=== PATIENT | female | born 1970 | race African-American/Black ===

== ENCOUNTER 2017-12-04 23:21 | Inpatient (IN) | payer BC ==
--- NOTE | 2017-12-04 23:55 | ED Physician Chart ---
ED Chief Complaint/HPI - Patient Information Date Seen:: 12/04/17 Time Seen:: 23:40 Chief Complaint:: chest pain History of Present Illness:: Patient had onset 2 days ago of left superior burning chest pain 9-10 on a scale 1-10. Right flank pain radiating down her right foot started today. Her fingertips were blue tonight. Paresthesias of her feet started about 1800. Historian:: Patient Review:: Nurse's Note Reviewed, Transfer documents Reviewed ED Review of Systems - Review of Systems General/Constitutional: No fever, No chills Skin: No skin lesions Head: No headache Eyes: No loss of vision ENT: No earache Neck: No neck pain, No swelling Cardio Vascular: Chest pain Pulmonary: No SOB GI: No nausea, No vomiting, No diarrhea G/U: No dysuria Musculoskeletal: Other (right flank pain) Endocrine: No polyuria, No polydipsia Psychiatric: No prior psych history Hematopoietic: No bruising Allergic/Immuno: No urticaria Neurological: No syncope ED Past Medical History - Past Medical History Past Medical History: Other (psoriatic arthritis; fibromyalgia; childhood asthma ) Family History: Heart disease Social History: Smoker, Other (smokes one half pack a day) Family Medical History - Family Member Grandmother Living Status: Hx Family Coronary Artery Disease: Yes ED Physical Exam - Physical Examination General/Constitutional: Well-developed, well-nourished, Alert, No distress Head: Atraumatic Eyes: Lids, conjuctiva normal, PERRL Skin: Nl inspection, No rash ENMT: External ears, nose nl, TM canals nl, Nasal exam nl, Lips, teeth, gums nl , Oropharynx nl, Tonsils nl Neck: No nuchal rigidity Respiratory: Nl effort/Exclusion, Clear to Auscultation Cardio Vascular: RRR, No murmur, gallop, rubs GI: No organomegaly, No hernia, Normal BS's, Nondistended, No mass/bruits Other GI comments:: Right-sided abdominal tenderness : No CVA tenderness Extremities: Normal digits & nails ED Labs/Radiology/EKG Results - Lab Results Results: Laboratory Results - last 24 hr 12/04/17 12/04/17 12/04/17 23:50 23:50 23:50 WBC 6.9 RBC 3.90 Hgb 11.4 L Hct 35.2 L MCV 90.3 MCH 29.2 MCHC Differential 32.3 RDW 15.5 Plt Count 457 H MPV 7.2 Neutrophils % 64.2 Lymphocytes % 32.0 Monocytes % 2.2 Eosinophils % 0.7 Basophils % 0.9 Sodium 135 L Potassium 4.4 Chloride 105 Carbon Dioxide 24.2 Anion Gap 10.2 BUN 29 H Creatinine 1.6 H Est GFR ( Amer) 44.4 Est GFR (Non-Af Amer) 36.7 BUN/Creatinine Ratio 18.1 Glucose 106 H Calcium 9.1 Magnesium 2.3 Total Bilirubin 0.4 Direct Bilirubin 0.03 AST 8 L ALT 6 L Alkaline Phosphatase 79 Troponin I < 0.01 L Total Protein 7.4 Albumin 4.1 Globulin 3.3 Albumin/Globulin Ratio 1.2 - EKG Interpretations Rate & Rhythm: normal sinus rhythm with a rate of 91; concave elevation in leads V2 and V3 [place]: normal axis ED Assessment - Assessment General Assessment: Spoke to Dr. Iraheta who felt that if the sedimentation rate is high patient could have pericarditis. With about 15 minutes more to run the sedimentation rate is already 70. Patient to be admitted to telemetry. Patient felt better after 2 mg of Dilaudid intramuscularly. ED Septic Shock - . Is Septic Shock (SBP<90, OR Lactate>4 mmol\L) present?: No ED Reassessment (Disposition) - Reassessment Reassessment Condition:: Improved - Diagnosis Diagnosis:: Chest pain; possible pericarditis; renal insufficiency - Patient Disposition Admitted to:: Telemetry Condition at Disposition:: Stable, Improved
[2017-12-05 00:09] LABS: % BASOPHILS 0.9 % (0.0-2.0); % EOSINOPHILS 0.7 % (0.0-5.0); % MONOCYTES 2.2 % (2.0-10.0); % NEUTROPHILS 64.2 % (40.0-80.0); BASOPHILE ABSOLUTE 0.1 Th/cumm (0-0.2); HEMATOCRIT 35.2 % (41.0-60); HEMOGLOBIN 11.4 gm/dL (12-16); LYMPHOCYTE ABSOLUTE 2.2 Th/cmm (1.5-3.0); MEAN CELL VOLUME 90.3 fl (81-100); MEAN CORPUSCULAR HEMOGLOBIN 29.2 pg (27.0-31.0); MEAN CORPUSCULAR HGB CONC 32.3 pg (28.0-36.0); MEAN PLATELET VOLUME 7.2 fl; MONOCYTE ABSOLUTE 0.2 Th/cmm (0.3-1.0); NEUTROPHILE ABSOLUTE 4.4 Th/cmm (1.8-8.0); PLATELET COUNT 457 Th/cmm (150-400); RED CELL DISTRIBUTION WIDTH 15.5 % (11.5-20.0); WHITE BLOOD COUNT 6.9 Th/cmm (4.8-10.8)
[2017-12-05] MEDS ORDERED: Sodium Chloride 0.9% 1,000 ML IV ONE (00:22)
[2017-12-05] MEDS ORDERED: HYDROmorphone 1 mg/mL 1mL Syr IVP STA (00:22)
[2017-12-05 00:27] LABS: ALB/GLOB RATIO 1.2 (1.0-1.8); ALBUMIN 4.1 gm/dL (3.7-5.3); ANION GAP 10.2 (7.0-16.0); BILIRUBIN,DIRECT 0.03 mg/dL (0.0-0.2); BILIRUBIN,TOTAL 0.4 mg/dL (0.3-1.0); CALCIUM SERUM 9.1 mg/dL (8.6-10.3); CARBON DIOXIDE 24.2 mEq/L (21.0-31.0); CREATININE - SERUM 1.6 mg/dL (0.6-1.2); GFR AFRICAN-AMERICAN 44.4 ml/min (>90); GFR NON AFRICAN-AMERICAN 36.7 ml/min; MAGNESIUM 2.3 mg/dL (1.9-2.7); POTASSIUM SERUM 4.4 mEq/L (3.5-5.1); TOTAL PROTEIN,SERUM 7.4 gm/dL (6.0-8.3)
[2017-12-05] MEDS ORDERED: HYDROmorphone 2 mg/mL 1mL Vial IM STA (01:22)
[2017-12-05 01:35] LABS: URINE MICROSCOPIC INDICATED? YES; URINE SOURCE CLEAN C
[2017-12-05 01:40] LABS: URINE BILIRUBIN NEGATIVE (NEGATIVE); URINE BLOOD NEGATIVE (NEGATIVE); URINE GLUCOSE (UA) NEGATIVE (NEGATIVE); URINE KETONE NEGATIVE (NEGATIVE); URINE LEUKOCYTE ESTERASE NEGATIVE (NEGATIVE); URINE NITRATE NEGATIVE (NEGATIVE); URINE PH 5.5 (4.6 - 8.0); URINE PROTEIN TRACE mg/dL (NEGATIVE); URINE UROBILINOGEN 0.2 E.U./dL (0.2 - 1.0)
[2017-12-05 01:42] LABS: URINE BACTERIA FEW /hpf (NONE SEEN); URINE CLARITY CLEAR (CLEAR); URINE COLOR YELLOW; URINE EPITHELIAL CELLS MODERATE /lpf (FEW); URINE RBC 0-2 /hpf (0-5); URINE WBC 0-2 /hpf (0-5)
[2017-12-05] MEDS ORDERED: HYDROmorphone 1 mg/mL 1mL Syr IM STA (07:30)
[2017-12-05] MEDS ORDERED: HYDROmorphone 2 mg/mL 1mL Vial ONE (07:32)
--- NOTE | 2017-12-05 08:08 | Diagnostic Imaging Report ---
Chest x-ray single view History: Pneumonia Comparison: None The heart size is normal. No focal pulmonary parenchymal processes. No hilar or mediastinal abnormalities. Impression: No acute abnormalities
[2017-12-05] MEDS ORDERED: APAP/Oxycodone 5/325mg Oral Tab PO PRN (09:46)
[2017-12-05] MEDS ORDERED: Pantoprazole 40 mg EC Tab PO SCH (10:00)
[2017-12-05] MEDS ORDERED: APAP/Oxycodone 5/325mg Oral Tab ONE (12:23)
--- NOTE | 2017-12-06 06:30 | History & Physical ---
ADMIT DATE: 12/05/2017 PATIENT IDENTIFICATION: A 46-year-old female. CHIEF COMPLAINT: Chest pain for 3 days. HISTORY SOURCE: Talking to the patient as well as Emergency Room physician. HISTORY OF PRESENT ILLNESS: A 46-year-old female with history of psoriasis, fibromyalgia, has been followed by funds transfer clerk at [facility], brought herself to the Emergency Room for chest pain evaluation for last 3 days, which she describes as sharp, burning and heaviness as well. The patient also noticed that her fingertips were also turning blue as well. She did have associated tingling and numbness on her feet as well. When the patient was seen by Emergency Room physician, the patient was worked up in the ER. It was noted that the patient had elevated ESR and negative troponin, negative chest x-ray and EKG, but based on her history of ____ ESR, consideration of pericarditis was suspected and the patient was advised to be admitted. PAST MEDICAL HISTORY: Remarkable for: 1. Fibromyalgia. 2. Psoriasis and psoriatic arthritis. 3. Chronic pain syndrome. MEDICATIONS: At home, she was taking gabapentin, Redig, and Enbrel. ALLERGIES: The patient is allergic to PENICILLIN. SOCIAL HISTORY: The patient currently works as a counselor. She has a history of smoking cigarette. Denies any alcohol or drug use. FAMILY MEDICAL HISTORY: Remarkable for hypertension. REVIEW OF SYSTEMS: The patient is complaining about pain on her both legs and numbness. She is also complaining of pain on the lower leg as well. She denies any bladder or bowel incontinence. She does walk, but the last 2 weeks, she is having pain and she has difficulty walking. She did go to Emergency Room at [facility] and she was discharged from [facility]. The patient denies any skin rash as well except the patient has some psoriatic lesions on the bottom of the feet. PHYSICAL EXAMINATION: GENERAL: The patient is alert, awake, lying in the bed. VITAL SIGNS: Temperature 98.5, pulse 84, respiratory rate 18, blood pressure 115/75. HEENT: Normocephalic and atraumatic. Extraocular muscles are intact. Tongue was pink and coated. Poor dentition noted. NECK: Supple, no JVD, no hepatojugular reflex, no lymphadenopathy, thyromegaly, or carotid bruit. HEART: Both heart sounds are regular. CHEST: Lung equal in expansion, no wheezing, no crackles. ABDOMEN: Soft. No guarding or rigidity. Liver and spleen are not palpable. No palpable mass. EXTREMITIES: No edema, no cyanosis. NEUROLOGIC: Alert, awake, and oriented to time, place, person. 2-12 cranial nerves are intact. Power in upper extremities is 5-. Lower extremity power is decreased due to pain, though power on the lower extremity in proximal and distal muscles are 5-. Sensation to touch is intact. [place] in both toes are going down. No cerebellar sign. AVAILABLE DIAGNOSTIC DATA: BUN and creatinine are 29 and 1.6, glucose of 106, troponin 0.01. ESR is 100. Urine is unremarkable. CLINICAL IMPRESSION: 1. Chest pain for the last 3 days, suspect most likely atypical in origin. In the view of her psoriasis, needs to rule out for myocarditis, pericarditis. 2. Elevated ESR in the presence of psoriatic arthritis and psoriasis, needs further workup to be done by primary physician and Rheumatology as an outpatient. 3. Elevated BUN and creatinine, no baseline BUN and creatinine, needs to be worked up as an outpatient. We will hydrate the patient and do the followup lab. 4. History of smoking. PLAN: 1. Admit this patient to telemetry unit. 2. Cardiology consultation. 3. Oxygen. 4. Appropriate home medicine reconciliation. 5. Prednisone for now and we will see how she does. 6. 2D echocardiogram. 7. Cardiac enzymes. 8. Pain management. 9. Follow lab. 10. Follow budget consultant's recommendation. 11. Care plan reviewed and discussed with staff. JOB# [id number]
== END 2017-12-05 14:00 | disposition home or self-care (01) | DRG 313 ==
LOC: ER 23:21 → TELE 12-05 02:45
PROVIDERS: ADMIT Internal Medicine; ATTEND Internal Medicine
DX: R07.89 Other chest pain (principal); L40.50 Arthropathic psoriasis, unspecified; F17.210 Nicotine dependence, cigarettes, uncomplicated; J45.909 Unspecified asthma, uncomplicated; M79.7 Fibromyalgia; N28.9 Disorder of kidney and ureter, unspecified; G89.4 Chronic pain syndrome; L40.9 Psoriasis, unspecified; Z88.0 Allergy status to penicillin; Z82.49 Family history of ischemic heart disease and other diseases of the circulatory system
CPT/HCPCS: 36415-UA; 71045-TC; 80048-TC; 80076-TC; 81001-TC; 81025-TC; 83735-TC; 84484-TC; 85025-TC; 85652-TC; 96374; 96376; J1170; Z7610